=== PATIENT | female | born 1990 | race Two or more races ===

== ENCOUNTER 2018-02-26 05:12 | Inpatient (IN) | payer BC ==
[~2018-02-26] VITALS: Ht 162.6 cm; Wt 100.0 kg
[2018-02-26] MEDS ORDERED: NEWBORN KIT ONE ×2 (05:20→05:31)
[2018-02-26] MEDS ORDERED: OXYTOCIN 30U/ 0.9% NaCL 500ML 500 ML IV ONE (05:27)
[2018-02-26] MEDS ORDERED: OXYTOCIN 30U/ 0.9% NaCL 500ML 500 ML IV PRN (05:27)
[2018-02-26] MEDS ORDERED: ONDANSETRON 2MG/ML, 2ML IVPush PRN (05:30)
[2018-02-26] MEDS ORDERED: FENTANYL PF 100 MCG/2ML IV PRN (05:30)
[2018-02-26] MEDS ORDERED: CALCIUM CARBONATE 500 MG TAB.CHEW PO PRN (05:30)
[2018-02-26] MEDS ORDERED: ALUMINUM/MAG/SIMETHICONE 30 ML UDC PO PRN (05:30)
[2018-02-26] MEDS ORDERED: METOCLOPRAMIDE 5 MG/ML, 2ML IVPush PRN (05:30)
[2018-02-26] MEDS ORDERED: SODIUM CITRATE/CITRIC ACID 30 ML UDC PO PRN (05:30)
[2018-02-26] MEDS ORDERED: OXYTOCIN 30U/ 0.9% NaCL 500ML 500 ML ONE ×2 (05:31→16:02)
[2018-02-26] MEDS ORDERED: MISOPROSTOL 25 MCG TABLET ONE ×2 (05:31→10:04)
[2018-02-26] MEDS ORDERED: D5%-LACTATED RINGERS 1,000 ML IV SCH (05:34)
[2018-02-26] MEDS ORDERED: LACTATED RINGERS 1,000 ML IV SCH ×2 (05:34→19:06)
[2018-02-26] MEDS: D5%-LACTATED RINGERS 1,000 ML IV SCH ×3 (05:37→21:37)
[2018-02-26] MEDS ORDERED: PLEASE ENTER ALLERGIES MC SCH (06:00)
[2018-02-26 06:05] LABS: BASOPHILS # (AUTO) 0.04 x10^3/uL (0-0.1); BASOPHILS % (AUTO) 0 % (0-1); EOSINOPHILS # (AUTO) 0.05 x10^3/uL (0-0.4); EOSINOPHILS % (AUTO) 1 % (1-7); LYMPHOCYTES # (AUTO) 2.33 x10^3/uL (1-3.4); LYMPHOCYTES % (AUTO) 24 % (22-44); MD NO; MEAN CORPUSCULAR HGB CONC 33.5 g/dL (32.4-35.8); MEAN CORPUSCULAR VOLUME 80.7 fL (80-100); MEAN PLATELET VOLUME 10.3 fL (7.4-10.4); MONOCYTES # (AUTO) 0.45 x10^3/uL (0.2-0.8); MONOCYTES % (AUTO) 5 % (2-9); NEUTROPHILS # (AUTO) 6.84 x10^3/uL (1.8-6.8); NEUTROPHILS % (AUTO) 70 % (42-75); PLATELET COUNT 144 x10^3/uL (130-400); RED BLOOD COUNT 4.71 x10^6/uL (3.82-5.3); RED CELL DISTRIBUTION WIDTH 16.7 % (9.6-15.2)
[2018-02-26] MEDS: MISOPROSTOL 25 MCG TABLET VG PRN ×2 (06:05→10:08)
[2018-02-26 09:15] VITALS: BP 126/69
[2018-02-26] MEDS: LACTATED RINGERS 1,000 ML IV SCH ×3 (11:58→23:57)
[2018-02-26] MEDS ORDERED: FENTANYL PF 100 MCG/2ML ONE ×2 (15:08→16:38)
[2018-02-26] MEDS: FENTANYL PF 100 MCG/2ML IVPush PRN ×2 (15:11→16:40)
[2018-02-26] MEDS ORDERED: MISOPROSTOL 200 MCG TABLET ONE (16:03)
[2018-02-26] MEDS ORDERED: LACTATED RINGERS 1,000 ML INTUTE PRN (18:30)
[2018-02-26] MEDS ORDERED: LACTATED RINGERS 1,000 ML INTUTE SCH (18:30)
[2018-02-26] MEDS ORDERED: BUPIVACAINE/PF 0.25% ONE (19:03)
[2018-02-26] MEDS ORDERED: FENTANYL/BUPIV./NS/PF 250 ML EPIDCONT ONE (19:04)
[2018-02-26] MEDS ORDERED: FENTANYL/BUPIV./NS/PF 250 ML EPIDCONT SCH (19:06)
[2018-02-26] MEDS ORDERED: EPHEDRINE 50 MG/ML, 1ML IVPush PRN (19:30)
[2018-02-26] MEDS ORDERED: NALOXONE 0.4 MG/ML, 1ML IVPush PRN (19:30)
[2018-02-26] MEDS ORDERED: LACTATED RINGERS 1,000 ML IVBOLUS PRN (19:30)
[2018-02-26] MEDS ORDERED: METOCLOPRAMIDE 5 MG/ML, 2ML ONE (20:12)
[2018-02-26] MEDS ORDERED: SODIUM CITRATE/CITRIC ACID 30 ML UDC ONE (20:12)
[2018-02-26] MEDS ORDERED: TERBUTALINE 1 MG/ML, 1ML ONE (21:20)
[2018-02-27] MEDS ORDERED: LIDOCAINE-MPF 1%, 5ML ONE (00:17)
[2018-02-27] MEDS ORDERED: OXYTOCIN 30U/ 0.9% NaCL 500ML 500 ML ONE (00:17)
[2018-02-27] MEDS ORDERED: MISOPROSTOL 200 MCG TABLET ONE (00:17)
[2018-02-27] MEDS: OXYTOCIN 30U/ 0.9% NaCL 500ML 500 ML IV SCH ×3 (02:47→22:47)
[2018-02-27] MEDS ORDERED: CALCIUM CARBONATE 500 MG TAB.CHEW PO PRN (03:00)
[2018-02-27] MEDS ORDERED: OXYcodone/APAP 5/325MG TABLET PO PRN ×2 (03:00)
[2018-02-27] MEDS ORDERED: ONDANSETRON ODT 4 MG PO PRN (03:00)
[2018-02-27] MEDS ORDERED: IBUPROFEN 600 MG TABLET ONE (03:43)
[2018-02-27] MEDS: IBUPROFEN 600 MG TABLET PO PRN ×3 (03:46→19:20)
[2018-02-27 04:35] VITALS: BP 114/66
[2018-02-27] MEDS: PRENATAL VIT/IRON/FA 1 EACH TABLET PO SCH (07:34)
[2018-02-27] MEDS: DOCUSATE 100 MG CAPSULE PO PRN ×2 (07:34→19:16)
[2018-02-27 07:54] VITALS: BP 118/72
[2018-02-27 09:44] LABS: MEAN CORPUSCULAR HEMOGLOBIN 26.7 pg (27.0-34.8); MEAN CORPUSCULAR HGB CONC 32.9 g/dL (32.4-35.8); MEAN CORPUSCULAR VOLUME 81.2 fL (80-100); MEAN PLATELET VOLUME 10.8 fL (7.4-10.4); PLATELET COUNT 146 x10^3/uL (130-400); RED BLOOD COUNT 4.96 x10^6/uL (3.82-5.3)
[2018-02-27 10:08] LABS: BASOPHILS # (AUTO) 0.06 x10^3/uL (0-0.1); BASOPHILS % (AUTO) 0 % (0-1); EOSINOPHILS # (AUTO) 0.02 x10^3/uL (0-0.4); EOSINOPHILS % (AUTO) 0 % (1-7); LYMPHOCYTES # (AUTO) 2.43 x10^3/uL (1-3.4); LYMPHOCYTES % (AUTO) 14 % (22-44); MD SCAN; MONOCYTES # (AUTO) 0.99 x10^3/uL (0.2-0.8); MONOCYTES % (AUTO) 6 % (2-9); NEUTROPHILS # (AUTO) 13.72 x10^3/uL (1.8-6.8); NEUTROPHILS % (AUTO) 80 % (42-75)
[2018-02-27 12:30] VITALS: BP 114/68
[2018-02-27 16:45] VITALS: BP 111/65
[2018-02-27] MEDS ORDERED: DIPH,PERTUSS(ACELL),TET VAC/PF NC IM-VACC ONE (18:30)
[2018-02-27 20:00] VITALS: BP 136/80
[2018-02-28] VITALS: BP 107/68
[2018-02-28] MEDS: IBUPROFEN 600 MG TABLET PO PRN ×2 (01:10→08:11)
[2018-02-28 04:31] VITALS: BP 110/72
[2018-02-28] MEDS: PRENATAL VIT/IRON/FA 1 EACH TABLET PO SCH (08:11)
[2018-02-28] MEDS: DOCUSATE 100 MG CAPSULE PO PRN (08:11)
[2018-02-28 08:15] VITALS: BP 136/83
[2018-02-28] MEDS: OXYTOCIN 30U/ 0.9% NaCL 500ML 500 ML IV SCH (08:47)
[2018-02-28] MEDS ORDERED: MEASLES,MUMPS&RUBELLA VACC/PF 0.5 ML SQ-VACC ONE ×2 (09:03→09:30)
[2018-02-28] MEDS ORDERED: IBUP-1222 PO (09:33)
[2018-02-28] MEDS ORDERED: OXYC-302 PO (09:36)
[2018-02-28] MEDS ORDERED: DOCU-131 PO (09:37)
== END 2018-02-28 11:40 | disposition home or self-care (01) | DRG 775 ==
LOC: LDIP 05:12 → 2NW 02-27 04:08
PROVIDERS: ADMIT Obstetrics & Gynecology; ATTEND Obstetrics & Gynecology
PROC: 10E0XZZ Delivery of Products of Conception, External Approach (ICD-10-PCS; principal; 2018-02-26)
PROC: 0KQM0ZZ Repair Perineum Muscle, Open Approach (ICD-10-PCS; 2018-02-26)
PROC: 10907ZC Drainage of Amniotic Fluid, Therapeutic from Products of Conception, Via Natural or Artificial Opening (ICD-10-PCS; 2018-02-26)
PROC: 3E0R3BZ Introduction of Anesthetic Agent into Spinal Canal, Percutaneous Approach (ICD-10-PCS; 2018-02-26)
PROC: 00HU33Z Insertion of Infusion Device into Spinal Canal, Percutaneous Approach (ICD-10-PCS; 2018-02-26)
PROC: 3E033VJ Introduction of Other Hormone into Peripheral Vein, Percutaneous Approach (ICD-10-PCS; 2018-02-26)
PROC: 3E0234Z Introduction of Serum, Toxoid and Vaccine into Muscle, Percutaneous Approach (ICD-10-PCS; 2018-02-28)
DX: O99.214 Obesity complicating childbirth (principal); E66.01 Morbid (severe) obesity due to excess calories; E28.2 Polycystic ovarian syndrome; O70.1 Second degree perineal laceration during delivery; Z37.0 Single live birth; Z68.37 Body mass index [BMI] 37.0-37.9, adult; Z3A.40 40 weeks gestation of pregnancy; Z79.84 Long term (current) use of oral hypoglycemic drugs; Z23 Encounter for immunization
CPT/HCPCS: 36415; 59200; 82803; 85025; 86850; 86900; 90715; J3010; J2590; J7120